=== PATIENT | male | born 1950 | race Caucasian/White ===

== ENCOUNTER 2025-01-10 11:30 | Outpatient (RCR) | payer OTHER, MEDICARE, SELFPAY ==
--- NOTE | 2024-12-08 11:38 | HP.PTEVAL ---
Patient's Visit Information Visit Information Visit Information: CASE FUNES is a 74 year old M referred to Physical Therapy by Samantha Arenas MD with a diagnosis of CERVICAL DISC DISORDER WITH RADICULOPATHY. Date of Evaluation: 12/08/24 Physical Therapist: Harry Bucio, PT, Cert MDT, OCS Visit Plan Frequency: 2x /Week Duration: 4 Weeks Plan: S/P CERVICAL FUSION C2-7( ROM WILL BE LIMITED) CERVICAL COLLAR OKAY TO REMOVE 5 # LIFTING RESTRICTION PT INTERVENTIONS POSTURAL EX'S ,BUE STRENGTHENING ,GRADED CERVICAL ROM ,GAIT AND BALANCE TRAINING Subjective Subjective: This 74 y/o male presents to physical therapy with S/P cervical fusion C2-7 on November 23 2024 at [facility] done Dr Arenas. Patient was in hospital 2 weeks. Patient was d/c from hospital to home November 30. Patient had had 2 week post .Patient had x-rays looked good. Patient is able remove brace aspen collar throughout day. Lifting restriction 5# . Patient has h/o s/p cervical fusion C5-6 1979 . Most recently ,patient had paresthesia in arms and legs thus had MRI showed severe stenosis thus need emergency surgery. Patient feels cramp in side neck. Patient some paresthesia arm and legs is less. Patient was d/c with fww. Patient is walking fine w/o walker in home. No falls after surgery .MEDICATION: muscle relaxer ,Percocet which stopped . Patient sleeping. Patient able to bath and dressing Independent. Patient lives in [facility] 1 step and walk in shower. Patient condition affects QOL and function and gait. 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 Pain Bilateral Neck: Pain Intensity (Out of 10): 6 Pain Intensity Range: 10 Objective Objective: POSTURE: mild forward posture INCISION : well approximate OBSERVATION: [place] aspen collar intact NEURO: C/O paresthesia/tingling arms /legs ,light touch ,reflexes C5-6-7 2/3 GAIT: ambulates with fww reciprocal pattern CERVICAL ROM: flexion severe loss ,lateral flexion severe loss ,rotation mod/severe ,extension severe AROM: BUE WFL MMT: ( peak force) deltoid right shoulder 8.8 right ,left 6.8 , biceps 10.9 right ,left 8.2 ,triceps left 7.2 ,right 9.7 , left hip flexion 13.2 ,quads 16.8 ,hamstrings 12.3 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[employer] STRENGTH: dynamometer right 60 # ,left 40# Special Tests C/S Radiculapathy - Left Upper limb tension test: Negative C/S Radiculapathy - Right Upper limb tension test: Negative Balance/Special Test Scores CATSIB Score (Max score 120 seconds): 65 Oswestry Neck Score: 34 Goals Goal 1:: Patient to be I with HEP for strengthening Goal Time Frame: 4-6 Weeks Goal 2:: Patient to ambulate no device normal ted Goal Time Frame: 4-6 Weeks Goal 3:: Patient to demonstrate 60% improvement with function and gait Goal Time Frame: 4-6 Weeks Goal 4:: Patient to improve neck oswestry by 5 points to improve QOL and function Goal Time Frame: 4-6 Weeks Goal 5:: Patient improve CATSIBE by 5 -10 points to improve QOL, Goal Time Frame: 4-6 Weeks Goal 6:: Patient to peak force BUE peak force and left LLE by 5-10 # to improve gait and function Rehabilitation Potential Physical Therapy Diagnosis: This patient underwent s/p cervical fusion C2-7 November 23 with weakness BUE ,decrease gait ,poor ROM ,balance deficits thus benefit from skilled PT Rehabilitation Potential: Good Anticipated Interventions Patient/Client Instruction: Educate patient on: Condition and Plan of Care For the Purpose of:: To decrease pain, To increase ROM, To improve muscle performance and motor function, To improve ability to perform ADL's, To increase tolerance to activity/condition/position, To improve ability of physical actions for home/community/work/leisure, To improve gait and locomotor functions, To increase flexibility/ROM, To improve endurance, To improve balance and To improve tolerance to ADL's Therapeutic Exercise to Include: Strength training, Endurance training, Balance training, Postural training, Flexibilty training, Gait and locomotor training, Active ROM and Scapular Strength/Stabilization Comment: BUE For the Purpose of:: To decrease pain, To increase ROM, To increase tolerance to activity/condition/position, To improve ability of physical actions for home/community/work/leisure, To improve gait and locomotor functions, To improve health of tissue, To increase flexibility/ROM, To improve endurance, To improve balance, To improve safety and To improve tolerance to ADL's Manual Therapy Techniques to Include: Soft tissue mobilization Comment: GENTLE UT/LEVATOR For the Purpose of:: To decrease pain, To improve health of tissue and To decrease soft tissue restriction Text: Thank you for the opportunity to evaluate your patient. For Medicare and Medicare HMO plans, please review the plan of care and approve it. It will need to be FAXED BACK to us at [phone] for Medicare purposes. For Medicare only, by signing this I certify the plan of care. Please let me know if there are questions or concerns regarding this plan of care. Physician Signature: Date:
--- NOTE | 2025-05-28 17:29 | HP.PTDCSUM ---
Discharge Summary D/C summary: It has been my pleasure to treat CASE FUNES referred by Samantha Arenas MD, with the diagnosis of CERVICAL DISC DISORDER WITH RADICULOPATHY for a total of 10 visit(s). Discharge Date: Please see the following information for a summary of their discharge status. Subjective Subjective: Noticed more numbness left side lower leg and left arm same Plan to see DR tomorrow Pain Bilateral Neck: Pain Intensity (Out of 10): 5 UE/LE Radicular Symptoms: Pain Intensity (Out of 10): 5 Overall Improvement % Improvement: 50 Objective Objective/Function: Did well with progression of strengthening and postural ex's goals to get stronger Goals Goal 1:: Patient to be I with HEP for strengthening Goal Progress: Progressing Goal 2:: Patient to ambulate no device normal ted Goal Progress: Progressing Goal 3:: Patient to demonstrate 60% improvement with function and gait Goal Progress: Progressing Goal 4:: Patient to improve neck oswestry by 5 points to improve QOL and function ( new goal) Goal Progress: Progressing Goal 5:: Patient improve CATSIBE by 5 -10 points to improve QOL, Goal Progress: Progressing Goal 6:: Patient to peak force BUE peak force and left LLE by 5-10 # to improve gait and function( new goal) Plan Plan: RTD , D/C Information d/c sentence: If there are questions or concerns regarding this patient's physical therapy, please feel free to call me at [phone]. Thank you for the referral of this patient. Sincerely, Harry Bucio, PT, Cert MDT, OCS Balance/Gait/Functional tests Balance/Special Test Scores CATSIB Score (Max score 120 seconds): 67 Oswestry Neck Score: 27 Improvement % Improvement: 50
== END 2025-01-10 19:00 | disposition home or self-care (01) ==
LOC: PT 11:30
PROVIDERS: PCP Family Medicine; Referring Provider Neurological Surgery; Visit Provider Neurological Surgery
DX: M50.10 Cervical disc disorder with radiculopathy, unspecified cervical region (principal)
CPT/HCPCS: 97014; 97110; 97140; 97162; 97530; G0283